=== PATIENT | female | born 1985 | race African-American/Black ===

== ENCOUNTER 2019-02-11 03:18 | Inpatient (IN) | payer MEDICARE, OTHER ==
[~2019-02-11] VITALS: Ht 162.6 cm; Wt 54.0 kg
[~2019-02-11 03:18] MED LIST: ALPR-394 PO; ALPR0.5T PO; AMLO10TA80 PO; B50 PO; CALC667C4 PO; CALC667T2 PO; CALC667T4 PO; CLON0.3T PO; CLON0.5T12 PO; DIPH25CA83 PO; DIPH50CA4 PO; FOLI0.8T23 PO; KEPP250 PO; KEPP500; KEPP500 PO; LAM1 PO; LAM2 PO; LAMO100T PO; LAMO1TAB2 PO; LEVE500T19 PO; LOSA50TA20 PO; NEPVIT PO; SEVE0.8P PO; SEVE800T8 PO; TEMA30CA PO; TEMA30CA5 PO
[2019-02-11] MEDS ORDERED: LABETALOL HCL 20MG/4ML CARPUJECT IV ONE (04:15)
[2019-02-11 05:50] LABS: BASOPHILS % 0.5 % (0.0-2.0); EOSINOPHILS % 1.5 % (0.0-5.0); HEMATOCRIT. 36.3 % (36.0-48.0); HEMOGLOBIN. 11.8 g/dL (12.0-16.0); LYMPHOCYTES % 9.7 % (20.0-50.0); MEAN CORPUSCULAR HEMOGLOBIN 29.7 pg (28.0-32.0); MEAN CORPUSCULAR VOLUME 91.7 fL (81.0-99.0); MEAN PLATELET VOLUME 8.3 fl (7.4-10.4); MONOCYTES % 8.5 % (2.0-8.0); NEUTROPHILS % 79.8 % (40.0-76.0); PLATELET 291 x1000/uL (130-400); RED BLOOD CELL COUNT 3.96 mill/uL (4.2-5.4); RED CELL DISTRIBUTION WIDTH 21.1 % (11.6-14.6)
[2019-02-11 05:58] LABS: PARTIAL THROMBOPLASTIN TIME 32.6 sec (23.4-31.0); PROTHROMBIN TIME 10.5 sec (9.6-11.0)
[2019-02-11] MEDS ORDERED: DEXTROSE 50% WATER 50ML SYRINGE IV ONE (07:00)
[2019-02-11] MEDS ORDERED: CLONIDINE 0.3MG TABLET PO ONE (07:00)
[2019-02-11] MEDS ORDERED: SODIUM BICARBONATE 8.4% 1 MEQ/ML 50ML SYR IV ONE (07:00)
[2019-02-11] MEDS ORDERED: ASPIRIN 81MG TABLET PO ONE (07:00)
[2019-02-11] MEDS ORDERED: ALBUTEROL (0.083%) 2.5MG/3ML NEB HHN ONE (07:00)
[2019-02-11] MEDS ORDERED: SODIUM POLYSTYRENE SULFONATE 15 G/60 ML BOT PO ONE (07:00)
[2019-02-11 08:34] LABS: CHLORIDE 110 mEq/L (98-107)
[2019-02-11 09:40] VITALS: BP 183/115
[2019-02-11] MEDS ORDERED: OMEPRAZOLE 20MG CAPSULE EXTENDED RELEASE PO SCH (09:45)
[2019-02-11] MEDS ORDERED: DIPHENHYDRAMINE 50MG/ML VIAL IV NR (09:45)
[2019-02-11] MEDS ORDERED: PREDNISONE 5MG TABLET PO SCH (10:00)
[2019-02-11] MEDS ORDERED: DAPSONE 100MG TABLET PO SCH (10:30)
[2019-02-11] MEDS: TACROLIMUS 0.5 MG CAPSULE PO SCH ×2 (11:06→18:25)
[2019-02-11] MEDS ORDERED: GUAIFENESIN 200MG/10ML SUGAR FREE UDC PO PRN (11:30)
[2019-02-11] MEDS ORDERED: CLONIDINE 0.2MG TABLET PO PRN (11:30)
[2019-02-11] MEDS ORDERED: DIPHENHYDRAMINE 50MG/ML VIAL IV PRN (11:30)
[2019-02-11] MEDS ORDERED: IPRATROPIUM/ALBUTEROL 0.5-3(2.5)MG/3ML NEB INH PRN (11:30)
[2019-02-11] MEDS ORDERED: DOCUSATE SODIUM 100MG CAPSULE PO PRN (11:30)
[2019-02-11] MEDS ORDERED: MAGNESIUM/ALUMINUM HYDROXIDE/SIMETHICONE 30ML UDC PO PRN (11:30)
[2019-02-11] MEDS ORDERED: ACETAMINOPHEN 325MG TABLET PO PRN (11:30)
[2019-02-11] MEDS ORDERED: ZOLPIDEM TARTRATE 5MG TABLET PO PRN (11:30)
[2019-02-11] MEDS ORDERED: NITROGLYCERIN 0.4MG TABLET SL SL PRN (11:30)
[2019-02-11] MEDS ORDERED: TRAMADOL 50MG TABLET PO PRN (11:30)
[2019-02-11] MEDS ORDERED: ONDANSETRON HCL 4MG/2ML INJ IV PRN (11:30)
[2019-02-11] MEDS ORDERED: AMLODIPINE 10MG TABLET PO SCH ×2 (11:45→17:00)
[2019-02-11 12:00] VITALS: BP 170/110
[2019-02-11] MEDS: SEVELAMER CARBONATE 800 MG TABLET PO SCH ×2 (12:04→18:29)
[2019-02-11 16:00] VITALS: BP 212/130
[2019-02-11] MEDS ORDERED: CLONIDINE 0.2MG TABLET PO SCH (17:00)
[2019-02-11] MEDS ORDERED: DAPS25TA MT (18:24)
[2019-02-11] MEDS ORDERED: FAMOTIDINE 20MG TABLET PO SCH (21:00)
[2019-02-11] MEDS ORDERED: LEVETIRACETAM 500MG TABLET PO SCH (21:00)
[2019-02-12] MEDS ORDERED: FOLIC ACID/VITAMIN B COMP W-C TABLET PO SCH ×2 (09:00)
== END 2019-02-11 21:05 | disposition left against medical advice (07) | DRG 291 ==
LOC: ER 03:18 → 6WST 07:10 → ENRESERV 08:10 → 6WST 18:42
PROVIDERS: ADMIT Internal Medicine; ATTEND Internal Medicine
PROC: 5A1D70Z Performance of Urinary Filtration, Intermittent, Less than 6 Hours Per Day (ICD-10-PCS; principal; 2019-02-11)
DX: I13.2 Hypertensive heart and chronic kidney disease with heart failure and with stage 5 chronic kidney disease, or end stage renal disease (principal); I50.33 Acute on chronic diastolic (congestive) heart failure; J96.00 Acute respiratory failure, unspecified whether with hypoxia or hypercapnia; N18.6 End stage renal disease; E44.0 Moderate protein-calorie malnutrition; D63.8 Anemia in other chronic diseases classified elsewhere; D72.829 Elevated white blood cell count, unspecified; G40.909 Epilepsy, unspecified, not intractable, without status epilepticus; K21.9 Gastro-esophageal reflux disease without esophagitis; E87.5 Hyperkalemia; Z53.21 Procedure and treatment not carried out due to patient leaving prior to being seen by health care provider; M32.9 Systemic lupus erythematosus, unspecified; Z82.49 Family history of ischemic heart disease and other diseases of the circulatory system; Z83.3 Family history of diabetes mellitus; Z86.718 Personal history of other venous thrombosis and embolism; Z87.891 Personal history of nicotine dependence; Z99.2 Dependence on renal dialysis; Z88.0 Allergy status to penicillin; Z88.8 Allergy status to other drugs, medicaments and biological substances; Z88.5 Allergy status to narcotic agent; Z90.49 Acquired absence of other specified parts of digestive tract; Z79.899 Other long term (current) drug therapy
CPT/HCPCS: 36415; 71045; 82962; 83036; 83605; 83880; 84484; 93005; 94644; 96374; 96375; 99285; J1200; J3490; J7040; J7507; J7512; J7611